=== PATIENT | female | born 1990 | race Caucasian/White ===

== ENCOUNTER → 2016-09-21 | Outpatient (REF) | payer BC ==
[~2016-09-21] MED LIST: CARV12.5 PO; CLEO300C2 PO; CYCL5TAB PO; ESCI10TA2 PO; FURO20TA2 PO; LOSA50TA20 PO; NITR0.4S14 SL
[2016-09-26 00:09] LABS: O+P EXAM Final report (.)
== END ==
LOC: M LAB REF 21:05
PROVIDERS: ATTEND Internal Medicine Gastroenterology
DX: R19.7 Diarrhea, unspecified (principal)

== ENCOUNTER 2016-10-11 08:41 | Outpatient (CLI) | payer BC ==
[~2016-10-11] VITALS: Ht 154.9 cm; Wt 91.6 kg
[2016-10-11] MEDS ORDERED: NS 1,000 ML IV ONE (09:00)
[2016-10-11] MEDS ORDERED: LIDOCAINE 2% INJ 100 MG/5 ML SDV (FOR ANES.) As Ordered ONE (10:44)
[2016-10-11] MEDS ORDERED: PROPOFOL 200 MG/20 ML VIAL As Ordered ONE (10:44)
--- NOTE | 2016-10-11 11:37 | ROOR ---
Patient Name: Kindra Serrano Procedure Date: 10/11/2016 10:38 AM Date of : 1990 Age: 26 Room: [facility] Gender: Female Note Status: Finalized Procedure: Upper GI endoscopy Indications: Suspected esophageal reflux, Suspected gastro-esophageal reflux disease Providers: Carlos A Elena MD Referring MD: YAO OLSEN MD Requesting Provider: Medicines: Monitored Anesthesia Care Complications: No immediate complications. Procedure: Pre-Anesthesia Assessment: - Prior to the procedure, a History and Physical was performed, and patient medications and allergies were reviewed. The patient is competent. The risks and benefits of the procedure and the sedation options and risks were discussed with the patient. All questions were answered and informed consent was obtained. Patient identification and proposed procedure were verified by the physician, the nurse and the fleet maintenance foreman in the procedure room. Mental Status Examination: normal. Airway Examination: normal oropharyngeal airway and neck mobility. Respiratory Examination: clear to auscultation. CV Examination: normal. Prophylactic Antibiotics: The patient does not require prophylactic antibiotics. Prior Anticoagulants: The patient has taken no previous anticoagulant or antiplatelet agents. ASA Grade Assessment: III - A patient with severe systemic disease. After reviewing the risks and benefits, the patient was deemed in satisfactory condition to undergo the procedure. The anesthesia plan was to use monitored anesthesia care (MAC). Immediately prior to administration of medications, the patient was re-assessed for adequacy to receive sedatives. The heart rate, respiratory rate, oxygen saturations, blood pressure, adequacy of pulmonary ventilation, and response to care were monitored throughout the procedure. The physical status of the patient was re-assessed after the procedure. The Endoscope was introduced through the mouth, and advanced to the second part of duodenum. The upper GI endoscopy was accomplished without difficulty. The patient tolerated the procedure well. Findings: The examined esophagus was normal. Two biopsies were obtained with cold forceps for histology in the lower third of the esophagus. Verification of patient identification for the specimen was done by the physician and nurse using the patient's name, date and medical record number. Estimated blood loss was minimal. Few non-bleeding superficial gastric ulcers with a clean ulcer base (Ba Class III) were found on the greater curvature of the gastric body, in the gastric antrum and on the greater curvature of the gastric antrum. The largest lesion was 10 mm in largest dimension. Biopsies were taken with a cold forceps for histology. Biopsies were taken with a cold forceps for Helicobacter pylori testing. The duodenal bulb and second portion of the duodenum were normal. Biopsies for histology were taken with a cold forceps for evaluation of celiac disease. Impression: - Normal esophagus. - Non-bleeding gastric ulcers with a clean ulcer base (Ba Class III). Biopsied. - Normal duodenal bulb and second portion of the duodenum. Biopsied. - Biopsies performed in the lower third of the esophagus. Recommendation: - Patient has a contact number available for emergencies. The signs and symptoms of potential delayed complications were discussed with the patient. Return to normal activities tomorrow. Written discharge instructions were provided to the patient. - Resume previous diet. - Continue present medications. - Use a proton pump inhibitor PO daily for 8 weeks. - Await pathology results. - Repeat upper endoscopy in 3 months to check healing. - Telephone GI clinic for pathology results in 1 week. - Return to GI clinic in 3 months. - Return to primary care physician. Carlos A Elena MD Carlso A Elena MD 10/11/2016 11:37:17 AM This report has been signed electronically. Number of Addenda: 0 Note Initiated On: 10/11/2016 10:38 AM Estimated Blood Loss: Estimated blood loss was minimal.
--- NOTE | 2016-10-11 11:37 | ROOR ---
Patient Name: Kindra Serrano Procedure Date: 10/11/2016 10:39 AM Date of : 1990 Age: 26 Room: [facility] Gender: Female Note Status: Finalized Procedure: Colonoscopy Indications: Chronic diarrhea Providers: Carlos A Elena MD Referring MD: YAO OLSEN MD Requesting Provider: Medicines: Monitored Anesthesia Care Complications: No immediate complications. Procedure: Pre-Anesthesia Assessment: - Prior to the procedure, a History and Physical was performed, and patient medications and allergies were reviewed. The patient is competent. The risks and benefits of the procedure and the sedation options and risks were discussed with the patient. All questions were answered and informed consent was obtained. Patient identification and proposed procedure were verified by the physician, the nurse and the shipping order clerk in the procedure room. Mental Status Examination: normal. Airway Examination: normal oropharyngeal airway and neck mobility. Respiratory Examination: clear to auscultation. CV Examination: normal. Prophylactic Antibiotics: The patient does not require prophylactic antibiotics. Prior Anticoagulants: The patient has taken no previous anticoagulant or antiplatelet agents. ASA Grade Assessment: III - A patient with severe systemic disease. After reviewing the risks and benefits, the patient was deemed in satisfactory condition to undergo the procedure. The anesthesia plan was to use monitored anesthesia care (MAC). Immediately prior to administration of medications, the patient was re-assessed for adequacy to receive sedatives. The heart rate, respiratory rate, oxygen saturations, blood pressure, adequacy of pulmonary ventilation, and response to care were monitored throughout the procedure. The physical status of the patient was re-assessed after the procedure. The Colonoscope was introduced through the anus and advanced to the cecum, identified by appendiceal orifice and ileocecal valve. The colonoscopy was performed without difficulty. The patient tolerated the procedure well. The quality of the bowel preparation was good. The ileocecal valve, appendiceal orifice, and rectum were photographed. Scope insertion time was 2 minutes. Scope withdrawal time was 11 minutes. The total duration of the procedure was 14 minutes. Findings: The perianal and digital rectal examinations were normal. Normal mucosa was found in the entire colon. Biopsies for histology were taken with a cold forceps from the ascending colon, transverse colon, descending colon, sigmoid colon and rectum for evaluation of microscopic colitis. Verification of patient identification for the specimen was done by the physician and nurse using the patient's name, date and medical record number. Estimated blood loss was minimal. Non-bleeding external and internal hemorrhoids were found during retroflexion. The hemorrhoids were medium-sized. Impression: - Normal mucosa in the entire examined colon. Biopsied. - Non-bleeding external and internal hemorrhoids. Recommendation: - Patient has a contact number available for emergencies. The signs and symptoms of potential delayed complications were discussed with the patient. Return to normal activities tomorrow. Written discharge instructions were provided to the patient. - Resume previous diet. - Continue present medications. - Await pathology results. - Repeat colonoscopy at age 49 for screening purposes. - Telephone GI clinic for pathology results in 1 week. - Return to GI clinic in 3 months. - Return to primary care physician. Attending Participation: I personally performed the entire procedure. Carlos A Elena MD Carlos A Elena MD 10/11/2016 11:36:30 AM This report has been signed electronically. Number of Addenda: 0 Note Initiated On: 10/11/2016 10:39 AM Estimated Blood Loss: Estimated blood loss was minimal.
[2016-10-11 11:55] VITALS: BP 140/79
== END 2016-10-11 12:02 | disposition home or self-care (01) ==
LOC: M OPP 08:41
PROVIDERS: ATTEND Internal Medicine Gastroenterology
DX: R19.7 Diarrhea, unspecified (principal); R19.5 Other fecal abnormalities; K64.4 Residual hemorrhoidal skin tags; K64.8 Other hemorrhoids; K52.9 Noninfective gastroenteritis and colitis, unspecified; R12 Heartburn; K25.9 Gastric ulcer, unspecified as acute or chronic, without hemorrhage or perforation; I42.9 Cardiomyopathy, unspecified; I10 Essential (primary) hypertension; E78.5 Hyperlipidemia, unspecified; R07.89 Other chest pain; F41.9 Anxiety disorder, unspecified; F31.9 Bipolar disorder, unspecified; N73.0 Acute parametritis and pelvic cellulitis; Z87.891 Personal history of nicotine dependence; Z88.2 Allergy status to sulfonamides; Z91.040 Latex allergy status; Z79.899 Other long term (current) drug therapy; Z80.49 Family history of malignant neoplasm of other genital organs; Z80.41 Family history of malignant neoplasm of ovary; Z80.1 Family history of malignant neoplasm of trachea, bronchus and lung; Z83.71 Family history of colonic polyps

== ENCOUNTER 2019-04-13 10:47 | Emergency (ER) | payer BC, SELFPAY ==
[~2019-04-13] VITALS: Ht 154.9 cm; Wt 94.5 kg
[~2019-04-13 10:47] MED LIST changes: -LOSA50TA20 PO; +LOSA50TA88 PO
[2019-04-13] MEDS ORDERED: LEXA1TAB2 PO (12:20)
[2019-04-13] MEDS ORDERED: IBUP-1114 PO (12:20)
[2019-04-13] MEDS ORDERED: GABA-843 PO (12:20)
[2019-04-13] MEDS ORDERED: MELA1TAB15 PO (12:20)
[2019-04-13] MEDS ORDERED: AMOX500C PO (13:19)
[2019-04-13 13:24] VITALS: BP 137/97
[2019-04-13] MEDS ORDERED: AMOXICILLIN 500 MG CAP PO ONE (13:30)
[2019-04-13] MEDS ORDERED: ACETAMINOPHEN 325 MG TAB PO ONE (13:30)
== END 2019-04-13 13:24 | disposition home or self-care (01) ==
LOC: M ED 10:47
DX: H66.92 Otitis media, unspecified, left ear (principal); J32.0 Chronic maxillary sinusitis; Z79.899 Other long term (current) drug therapy; Z88.2 Allergy status to sulfonamides; Z88.8 Allergy status to other drugs, medicaments and biological substances; Z91.040 Latex allergy status

== ENCOUNTER → 2020-02-13 | Outpatient (CLI) | payer SELFPAY ==
[~2020-02-13] MED LIST changes: +ACET-838 PO; +AMOX500C PO; +GABA-843 PO; +IBUP-1114 PO; +LEXA1TAB2 PO; +MELA1TAB15 PO; +WELLTAB38 PO
== END ==
LOC: M LABSMTC 10:50
PROVIDERS: ATTEND Anesthesiology
DX: Z01.818 Encounter for other preprocedural examination (principal); Z20.828 Contact with and (suspected) exposure to other viral communicable diseases

== ENCOUNTER 2020-02-18 06:06 | Day surgery (SDC) | payer BC ==
[~2020-02-18] VITALS: Ht 154.9 cm; Wt 86.6 kg
[~2020-02-18 06:06] MED LIST changes: +AMPICILLIN SOD/SULBACTAM SOD 3 GM in D5W MINI-BAG PLUS 100 ML IV ONE; +LR 1,000 ML IV ONE
[2020-02-18] MEDS ORDERED: propofoL 200 MG/20 ML VIAL As Ordered ONE (07:11)
[2020-02-18] MEDS ORDERED: ONDANSETRON 4MG/2ML VIAL As Ordered ONE (07:11)
[2020-02-18] MEDS ORDERED: ROCURONIUM BROMIDE 50 MG/5 ML VIAL As Ordered ONE ×2 (07:11→08:17)
[2020-02-18] MEDS ORDERED: LIDOCAINE 2% 100MG/5ML SDV (FOR ANES.) As Ordered ONE (07:11)
[2020-02-18] MEDS ORDERED: dexameTHASONE 4 MG/ML 1ML VIAL (J1100 PER 1MG) As Ordered ONE (07:11)
[2020-02-18] MEDS ORDERED: MIDAZOLAM INJ 2MG/2ML VIAL (J2250 PER 1MG) As Ordered ONE (07:12)
[2020-02-18] MEDS ORDERED: fentaNYL 100 MCG/2 ML INJECTION (J3010) As Ordered ONE ×4 (07:12→09:35)
[2020-02-18] MEDS ORDERED: LIDOCAINE 1% SDV 30ML VIAL As Ordered ONE (07:15)
[2020-02-18] MEDS ORDERED: BUPIVACAINE HCL 0.25% 30ML VIAL As Ordered ONE (07:15)
[2020-02-18] MEDS ORDERED: ACETAMINOPHEN 1000MG 100ML IV BTL (OFIRMEV) (J0131 PER 10MG) As Ordered ONE (07:49)
[2020-02-18] MEDS ORDERED: SUGAMMADEX SODIUM 500 MG/5 ML VIAL (BRIDION) As Ordered ONE (07:53)
[2020-02-18] MEDS ORDERED: KETOROLAC 60MG 2ML VIAL As Ordered ONE (07:55)
[2020-02-18] MEDS ORDERED: ESMOLOL INJ 100MG/10ML VIAL As Ordered ONE (07:59)
[2020-02-18] MEDS ORDERED: oxyCODONE 5MG TAB As Ordered ONE (09:35)
[2020-02-18] MEDS: fentaNYL 100 MCG/2 ML INJECTION (J3010) IV PRN ×5 (09:38→10:10)
[2020-02-18] MEDS: oxyCODONE 5MG TAB PO PRN ×2 (09:38→11:44)
[2020-02-18] MEDS ORDERED: MEPERIDINE INJ 25 MG/ML VIAL (J2175) IV PRN (10:00)
[2020-02-18] MEDS ORDERED: ONDANSETRON 4MG/2ML VIAL IV PRN ×2 (10:00→11:00)
[2020-02-18] MEDS ORDERED: METOCLOPRAMIDE INJ 10MG/2ML VIAL (J2765 PER 1) IV PRN (10:00)
[2020-02-18] MEDS ORDERED: LR 1,000 ML IV SCH (10:00)
[2020-02-18] MEDS ORDERED: PERCOCET 5MG/325MG TAB PO PRN (11:00)
[2020-02-18 11:35] VITALS: BP 164/93
[2020-02-18] MEDS ORDERED: KETOROLAC 30 MG/ML 1ML VIAL IV PRN (15:00)
--- NOTE | 2020-03-15 23:02 | ROOPDOC ---
[facility] Report Of Operation Report of Operation DATE OF PROCEDURE: 02/18/20 PREPROCEDURE DIAGNOSES: Cholelithiasis, biliary colic. POSTPROCEDURE DIAGNOSES: Cholelithiasis, chronic cholecystitis. PROCEDURE: Robotic-assisted laparoscopic cholecystectomy with ICG identification of the biliary tree. SURGEON: Bay Kinsey MD CONCRETE VIBRATOR OPERATOR: ANESTHESIA: General Anesthesia. ESTIMATED BLOOD LOSS: Approximately 20 mL. COMPLICATIONS: none. REMARKS: moderately distended gb, with mild thick kelly (chronic). DESCRIPTION OF PROCEDURE: Patient was given a dose Unasyn 3 g IV preoperatively for prophylaxis. She was given a dose of ICG 5 mg IV with 10 mL NS flush 45 minutes prior to the procedure. She was brought to the operating room, laid supine on the table, compression boots placed for DVT prophylaxisusual sterile fashion. We paused for a surgical timeout using both pre-incision safety checklist to verify correct patient, procedure site and additional clinical information prior to beginning the procedure. Entry to the abdomen done through a small incision at the left upper quadrant area. A Veress needle is inserted on a controlled fashion. CO2 insufflation started to pressure 15 mmHg. Using the same incision a 8 mm optical trocar was then placed under direct vision of laparoscope. The insertion site was inspected for injury and none was found. Patient was then positioned on a reverse trendelenburg position with her right side tilted up to further expose the gallbladder and gallbladder fossa and retract the bowels away from the area. Under direct vision in the right upper quadrant in the right lower quadrant midclavicular port was placed. Under laparoscopic guidance, the right lateral abdominal wall area at the transversus abdominis plane was infiltrated with local anesthesia. The da Mo Xi robotic tower was then maneuvered in place, the trochars were docked onto the robotic arms, the camera and instruments placed and positioned inside the abdomen. I then unscrubbed and took control of the robotic camera and instruments at the surgeon's console Her liver smooth is moderately enlarged, fatty appearing; the gallbladder is moderately distended takes very elongated course but otherwise minimally thickened abdominal wall without any evidence of acute inflammation. The gb is located deep underneath the liver which makes visualization of the neck of the gb moderately difficult. The fundus of the gallbladder was grasped and the gallbladder was elevated superiorly exposing the neck of the gallbladder. Gallbladder wall is mildly and chronically thickened without any sign of any acute inflammation. The peritoneum overlying the area was opened up and dissected free both anteriorly and posteriorly to help with retraction of the gallbladder. The hepatocystic triangle was approached and dissected using a forced bipolar instrument and robotic hook cautery. The neck of the gallbladder and the course of the cystic duct as well as the bile duct was adequately visualized with aid of firefly and ICG. The cystic artery was identified and during dissection there was some mild oozing behind the cystic artery so I decided to put Elizabeth clips at the cystic artery early though I did not transect it at this time. The cystic duct was identified coming off from the neck gallbladder this was circumferentially dissected. We continued posterior dissection proximally at the neck of the gallbladder until a critical view of safety was achieved whereby only the previously identified duct and artery coursing through the neck the gallbladder. I switched views with firefly to determine and visualized the course of the cystic duct, likewise the common bile duct. Photodocumentation was done of the critical view of safety. The cystic artery was then divided in between the previously placed Elizabeth clips. After again checking her anatomy and verifying that the previously identified cystic duct with firefly view, this was also clipped 3 times and divided (2 hemoclips downstream and one Hemoclip upstream). The rest of the gallbladder was then dissected free of the gallbladder bed using Bovie cautery. The gallbladder was detached from the liver plate intact, and placed into an Endobag. I scrubbed back in. The gallbladder was extracted from the left upper quadrant port site with blunt enlargement of the trocar site using Lashay forceps. The fascial opening at the left upper quadrant was closed with Shaq- Diana device using an 0 Vicryl stitch. The abdomen was deflated all ports were removed. The umbilical fascial defect repaired with 0 Vicryl in a mattress fashion. Rest of the skin incisions closed with 4-0 Monocryl in subcuticular fashion. Dermabond was used to cover the port site incisions Patient was awakened, extubated and brought to recovery room stable. BAY KINSEY MD Mar 15, 2020 23:02
== END 2020-02-18 12:06 | disposition home or self-care (01) ==
LOC: M SDC 06:06
PROVIDERS: ATTEND Surgery
DX: K80.10 Calculus of gallbladder with chronic cholecystitis without obstruction (principal); F31.9 Bipolar disorder, unspecified; F41.9 Anxiety disorder, unspecified; F60.3 Borderline personality disorder; K58.9 Irritable bowel syndrome, unspecified; R06.83 Snoring; Z79.899 Other long term (current) drug therapy; Z87.891 Personal history of nicotine dependence; Z88.8 Allergy status to other drugs, medicaments and biological substances; Z91.018 Allergy to other foods; Z91.040 Latex allergy status; Z98.51 Tubal ligation status
CPT/HCPCS: 47562; 88304; J0131; J1100; J1885; J2250; J2405; J3010; S2900

== ENCOUNTER → 2020-04-26 | Outpatient (REF) ==
[~2020-04-26] MED LIST changes: -AMPICILLIN SOD/SULBACTAM SOD 3 GM in D5W MINI-BAG PLUS 100 ML IV ONE; +ESCI10TA16 PO; -ESCI10TA2 PO; +GABA-282 PO; -GABA-843 PO; -LR 1,000 ML IV ONE
== END ==
LOC: M LABSMTC 12:21
PROVIDERS: ATTEND Pediatrics
DX: Z11.52 Encounter for screening for COVID-19 (principal)

== ENCOUNTER 2020-05-29 10:49 | Emergency (ER) | payer BC ==
[~2020-05-29] VITALS: Ht 154.9 cm; Wt 87.5 kg
[2020-05-29] MEDS ORDERED: BACL10TA2 (10:58)
[2020-05-29] MEDS ORDERED: IBUPROFEN 800 MG TAB PO ONE (12:20)
--- NOTE | 2020-05-29 12:58 | REP ---
INDICATION: L neck/shoulder pain radiating to LUE. COMPARISON: None. TECHNIQUE: Helical scanning is acquired and overlapping 2 mm high resolution axial images were generated and reviewed at bone and soft tissue window settings. Coronal and sagittal multiplanar re-formations images are generated. FINDINGS: There is no evidence of cervical spine element fracture. No skull base fracture is seen. Cervical vertebral body heights are preserved. Alignment is normal. Facet joints are normally aligned bilaterally at each cervical level on multiplanar re-formations images. There is no evidence of intraspinal or paraspinal hematoma. No extra vertebral abnormality is seen. There is some straightening. There is minimal disc space narrowing at C5-6 with left-sided uncovertebral spurring at C5-6 mild in degree. On soft tissue window settings at this level a small left broad-based disc protrusion is apparent at C5-6. IMPRESSION: Mild degenerative disc changes at C5-6 with left sided small disc protrusion and left-sided uncovertebral spurring at C5-6. Otherwise negative. No fracture seen.. <Electronically signed by Sebas Coronel > 05/29/20 [id number]
--- NOTE | 2020-05-29 12:59 | REP ---
INDICATION: L shoulder pain. COMPARISON: None. TECHNIQUE: Three views. FINDINGS: Three views of the left shoulder demonstrate widening of the AC joint consistent with prior resection of the distal clavicle. AC joint and glenohumeral articulations are normally aligned. No fracture or subluxation is seen. Periarticular soft tissues are unremarkable. No erosive changes seen. IMPRESSION: Findings suggestive of previous left distal claviculectomy. No acute bony abnormality. <Electronically signed by Sebas Coronel > 05/29/20 [id number]
[2020-05-29 13:53] VITALS: BP 138/90
== END 2020-05-29 13:55 | disposition home or self-care (01) ==
LOC: M ED 10:49
DX: M54.12 Radiculopathy, cervical region (principal); M25.78 Osteophyte, vertebrae; Z91.040 Latex allergy status; Z91.02 Food additives allergy status; Z88.8 Allergy status to other drugs, medicaments and biological substances; Z79.899 Other long term (current) drug therapy

== ENCOUNTER 2020-05-31 16:36 | Emergency (ER) | payer OTHER, BC ==
[~2020-05-31] VITALS: Ht 154.9 cm; Wt 87.4 kg
[~2020-05-31 16:36] MED LIST changes: +BACL10TA2; +RALTEGRAVIR 400 MG TAB (ISENTRESS) PO SCH; +TRUVADA 200MG/300MG TABLET PO SCH
[2020-05-31 16:42] VITALS: BP 155/90
[2020-05-31 17:14] LABS: BASO # 0.1 10^3/uL (0.0-0.2); BASO % 1.1 % (0.0-1.0); EOS # 0.1 10^3/uL (0.0-0.5); EOS % 1.6 % (0.0-3.0); HEMATOCRIT 37.3 % (36.0-47.0); HEMOGLOBIN 12.5 g/dl (12.0-15.5); LYMPH % 32.7 % (24.0-44.0); MEAN CORPUSCULAR HEMOGLOBIN 30.6 pg (27.0-33.0); MEAN CORPUSCULAR HGB CONC 33.5 g/dl (32.0-36.5); MEAN CORPUSCULAR VOLUME 91.2 fl (80.0-96.0); MONO # 0.4 10^3/uL (0.0-0.8); MONO % 6.7 % (2.0-8.0); NEUTROPHILS # 3.5 10^3/uL (1.5-8.5); NEUTROPHILS % 57.6 % (36.0-66.0); PLATELET COUNT, AUTOMATED 290 10^3/uL (150-450); RED BLOOD COUNT 4.09 10^6/uL (4.00-5.40); WHITE BLOOD COUNT 6.2 10^3/uL (4.0-10.0)
[2020-05-31 17:32] LABS: ALBUMIN 3.9 GM/DL (3.2-5.2); ALT/SGPT 29 U/L (12-78); BILIRUBIN,TOTAL 0.5 MG/DL (0.2-1.0); BLOOD UREA NITROGEN 12 MG/DL (7-18); CALCIUM LEVEL 8.8 MG/DL (8.5-10.1); CARBON DIOXIDE LEVEL 22 MEQ/L (21-32); CHLORIDE LEVEL 113 MEQ/L (98-107); CREATININE FOR GFR 0.85 MG/DL (0.55-1.30); GLOMERULAR FILTRATION RATE > 60.0 (>60); GLUCOSE, FASTING 111 MG/DL (70-100); HCG, SERUM QUALITATIVE NEGATIVE (NEGATIVE); POTASSIUM SERUM 4.1 MEQ/L (3.5-5.1); SODIUM LEVEL 141 MEQ/L (136-145); TOTAL PROTEIN 7.2 GM/DL (6.4-8.2)
[2020-05-31] MEDS ORDERED: EXPOSURE KIT-ADULT 7 DAY SUPPLY PO ONE (17:35)
[2020-05-31 17:41] LABS: HEPATITIS B SURFACE ANTIBODY POSITIVE (POSITIVE)
[2020-05-31 17:52] LABS: HEPATITIS B SURFACE ANTIGEN NEGATIVE (NEGATIVE)
[2020-05-31] MEDS ORDERED: TRUVADA 200MG/300MG TABLET PO ONE (17:55)
[2020-05-31] MEDS ORDERED: RALTEGRAVIR 400 MG TAB (ISENTRESS) PO ONE (17:55)
[2020-05-31] MEDS ORDERED: TRUVTAB PO (18:06)
[2020-05-31] MEDS ORDERED: ZOFR4TAB16 PO (18:17)
[2020-05-31] MEDS ORDERED: RALT40TA PO (18:17)
[2020-05-31 18:20] LABS: HEPATITIS C VIRUS ABY INDEX < 0.0 INDEX (<0.8)
[2020-05-31 18:21] LABS: HIV SCREEN CENTAUR EXPOSED NEGATIVE (NEGATIVE)
[2020-05-31] MEDS ORDERED: ONDANSETRON 4 MG ORAL DISINTEGRATING TAB PO ONE (18:30)
== END 2020-05-31 18:46 | disposition home or self-care (01) ==
LOC: M ED 16:36
DX: S61.239A Puncture wound without foreign body of unspecified finger without damage to nail, initial encounter (principal); W27.2XXA Contact with scissors, initial encounter; Z77.21 Contact with and (suspected) exposure to potentially hazardous body fluids; Z88.1 Allergy status to other antibiotic agents; Z88.2 Allergy status to sulfonamides; Z88.8 Allergy status to other drugs, medicaments and biological substances; Z91.040 Latex allergy status; Z91.02 Food additives allergy status; Y92.9 Unspecified place or not applicable; Y93.9 Activity, unspecified; Y99.9 Unspecified external cause status
CPT/HCPCS: 36415; 80053; 84703; 85025; 86706; 86803; 87340; 87389; 99282; Q0162

== ENCOUNTER → 2020-11-30 | Outpatient (REF) ==
[~2020-11-30] MED LIST changes: -ACET-838 PO; +ACET32TAB PO; +EMTR1TAB16 PO; +RALT40TA PO; -RALTEGRAVIR 400 MG TAB (ISENTRESS) PO SCH; -TRUVADA 200MG/300MG TABLET PO SCH; +ZOFR4TAB16 PO
== END ==
LOC: M LABSMTC 11:25
PROVIDERS: ATTEND Pediatrics
DX: Z11.52 Encounter for screening for COVID-19 (principal)

== ENCOUNTER → 2020-12-05 | Outpatient (REF) | LOC: M LABSMTC 11:07 | PROVIDERS: ATTEND Family Medicine | DX: Z11.52 Encounter for screening for COVID-19 (principal) ==

== ENCOUNTER → 2021-04-12 | Outpatient (REF) ==
[~2021-04-12] MED LIST changes: +LOSA50TA28 PO; -LOSA50TA88 PO
== END ==
LOC: M LABSMTC 09:18
PROVIDERS: ATTEND Family Medicine
DX: Z11.52 Encounter for screening for COVID-19 (principal)

== ENCOUNTER → 2021-04-24 | Outpatient (REF) | LOC: M LABSMTC 09:48 | PROVIDERS: ATTEND Family Medicine | DX: Z11.52 Encounter for screening for COVID-19 (principal) ==

== ENCOUNTER 2022-04-29 21:46 | Emergency (ER) | payer BC ==
[2022-04-29] MEDS ORDERED: ONDANSETRON 4MG 2ML VIAL IV ONE (23:50)
[2022-04-29] MEDS ORDERED: MORPHINE 4 MG/ML 1ML VIAL IV ONE (23:50)
[2022-04-30 00:30] VITALS: BP 141/92
[2022-04-30 00:53] LABS: HCG, SERUM QUALITATIVE NEGATIVE (NEGATIVE)
[2022-04-30] MEDS ORDERED: LIDO5DIS41 TD (01:53)
[2022-04-30] MEDS ORDERED: CYCL-707 PO (01:53)
[2022-04-30] MEDS ORDERED: LIDOCAINE 5% (LIDODERM) PATCH TD ONE (01:55)
== END 2022-04-30 02:16 | disposition home or self-care (01) ==
LOC: EDBD 21:46 → M ED 21:46
DX: S30.0XXA Contusion of lower back and pelvis, initial encounter (principal); W10.9XXA Fall (on) (from) unspecified stairs and steps, initial encounter; Y92.099 Unspecified place in other non-institutional residence as the place of occurrence of the external cause; F31.9 Bipolar disorder, unspecified; F43.10 Post-traumatic stress disorder, unspecified; Z91.018 Allergy to other foods; Z91.040 Latex allergy status; Z88.2 Allergy status to sulfonamides
CPT/HCPCS: 71250; 72131; 84703; 99284; J2270; J2405

== ENCOUNTER → 2023-04-10 | Outpatient (REF) ==
[~2023-04-10] MED LIST changes: +CYCL-707 PO; +LIDO5DIS41 TD
== END ==
LOC: M EMP 13:50
PROVIDERS: ATTEND Family Medicine
DX: Z11.52 Encounter for screening for COVID-19 (principal)